=== PATIENT | male | born 1955 | race Caucasian/White ===

== ENCOUNTER 2017-07-23 14:55 | Emergency (ER) | payer OTHER ==
[2017-07-23] MEDS ORDERED: Lidocaine 1%* 5 ML VIAL INJ ONE (19:23)
[2017-07-23] MEDS ORDERED: Sulfamethox/Trimethoprim DS 800/160* TAB PO ONE (19:52)
--- NOTE | 2017-07-23 19:52 | ED ---
Skin Complaint - HPI Summary HPI Summary: 61M presents with right big toe infection. He states that three weeks ago he dropped something on his foot. He states he has been able to ambulate. He states was bruise under the nail that has been draining. He states his big toes started to swell and that became warm to touch. no history of gout. no fever. no history of MRSA. the area has been draining. He has neuropathy in his foot. He is not diabetic. He says that sometimes has throbbing pain and sometimes no pain. - History of Current Complaint Chief Complaint: EDExtremityLower Time Seen by Provider: 07/23/17 18:26 Stated Complaint: RIGHT BIG TOE INFECTION Pain Intensity: 2 - Allergy/Home Medications Allergies/Adverse Reactions: Allergies Allergy/AdvReac Type Severity Reaction Status Date / Time No Known Allergies Allergy Verified 07/23/17 15:01 PMH/Surg Hx/FS Hx/Imm Hx Cardiovascular History: Reports: Hx Hypertension Neurological History: Reports: Other Neuro Impairments/Disorders - neuropathy - Immunization History Immunizations Up to Date: Yes Infectious Disease History: No Infectious Disease History: Denies: Traveled Outside the [place] in Last 30 Days - Social History Alcohol Use: None Substance Use Type: Reports: None Smoking Status (MU): Former Smoker Review of Systems Negative: Fever Negative: Chest Pain Negative: Shortness Of Breath Positive: Rash All Other Systems Reviewed And Are Negative: Yes Physical Exam Triage Information Reviewed: Yes Vital Signs On Initial Exam: Initial Vitals Temp Pulse Resp BP Pulse Ox 98.5 F 88 16 120/85 95 07/23/17 14:58 07/23/17 14:58 07/23/17 14:58 07/23/17 14:58 07/23/17 14:58 Vital Signs Reviewed: Yes Appearance: Positive: Well-Appearing Skin: Positive: Warm, Dry, Other - edema and erythema near right great toe nailbed Head/Face: Positive: Normal Head/Face Inspection Eyes: Positive: Normal, Conjunctiva Clear Respiratory/Lung Sounds: Positive: Clear to Auscultation, Breath Sounds Present Cardiovascular: Positive: Normal, RRR Musculoskeletal: Positive: Strength/ROM Intact - right foot, Other - good pulses , Neurological: Positive: Normal Psychiatric: Positive: Normal - Diego Coma Scale Coma Scale Total: 15 Diagnostics - Vital Signs Vital Signs Temp Pulse Resp BP Pulse Ox 07/23/17 14:58 98.5 F 88 16 120/85 95 - Laboratory Lab Statement: Any lab studies that have been ordered have been reviewed, and results considered in the medical decision making process. Course/Dx - Course Course Of Treatment: 61M presents with right big toe infection. He states that three weeks ago he dropped something on his foot. He states he has been able to ambulate. He states was bruise under the nail that has been draining. He states his big toes started to swell and that became warm to touch. no history of gout. no fever. no history of MRSA. the area has been draining. He has neuropathy in his foot. He is not diabetic. He says that sometimes has throbbing pain and sometimes no pain. on exam has erythema near right great toe nail, ecchymosis under right great toe. I&D paronychia will some drainge. told to continue warms soaks. will discharge on bactrim. patient understand and agrees with plan. - Differential Diagnoses - Skin Complaint Differential Diagnoses: Abscess, Cellulitis, Other - paronychia - Diagnoses Provider Diagnoses: Paronychia of great toe, right Discharge - Discharge Plan Condition: Good Disposition: HOME Prescriptions: Sulfamethox/Trimethoprim DS* [Bactrim DS 800/160 TAB*] 1 tab PO BID #19 tab Patient Education Materials: Paronychia (ED) Referrals: Non Staff,Doctor [Primary Care Provider] - Additional Instructions: Soak toe twice a day Take antibiotic twice a day for 10 days Take tyenlol for pain every 6 hours Return to ED if develop fever, spreading redness or any new or worsening symptoms
== END 2017-07-23 20:32 | disposition home or self-care (01) ==
LOC: ED 14:55
DX: L03.031 Cellulitis of right toe (principal); I10 Essential (primary) hypertension; G62.9 Polyneuropathy, unspecified; Z87.891 Personal history of nicotine dependence
CPT/HCPCS: 10060; 99282; A9270-GY